=== PATIENT | male | born 2000 | race Caucasian/White ===

== ENCOUNTER 2022-08-04 13:57 | Emergency (ER) | payer MEDICAID ==
[~2022-08-04] VITALS: Ht 165.1 cm; Wt 51.8 kg
--- NOTE | 2022-08-04 16:19 | NUR ---
CHARGE NURSE JEROD CASTANEDA NOTIFIED OF GENERAL ASSESSMENT.
--- NOTE | 2022-08-04 16:37 | NUR ---
I agree with general assessment performed by Rosa Maria BHAT.
[2022-08-04 18:44] VITALS: BP 111/67
== END 2022-08-04 18:55 | disposition home or self-care (01) ==
LOC: ER 13:59
DX: K64.4 Residual hemorrhoidal skin tags (principal); F17.200 Nicotine dependence, unspecified, uncomplicated
CPT/HCPCS: 99281

== ENCOUNTER 2025-05-29 06:38 | Emergency (ER) | payer MEDICAID ==
[~2025-05-29] VITALS: Ht 165.1 cm; Wt 50.4 kg
--- NOTE | 2025-05-29 07:33 | RADIOLOGY REPORT ---
CHEST RADIOGRAPH Indication: LEFT LATERAL RIB PAIN Technique: Frontal and lateral view of the chest was obtained Comparison: None FINDINGS: Lines and Tubes: None Lungs: Clear Pleura: No effusion. No pneumothorax. Cardiomediastinal contours: Unremarkable Bones: Unremarkable IMPRESSION: No evidence of acute disease.
--- NOTE | 2025-05-29 08:29 | ELECTROCARDIOGRAPH REPORT ---
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
--- NOTE | 2025-05-29 08:38 | Physician Documentation ---
History of Present Illness General Chief Complaint: Rib pain Stated Complaint: SOB/LEFT SIDE PAIN Time Seen by MD: 08:33 Primary Medical Doctor: [facility] History of Present Illness Initial Comments The patient is a 24-year-old male with no significant past medical history who woke up this morning and smoked marijuana and tobacco. Shortly thereafter he developed left-sided chest pain, sharp and worse with movement and breathing. He has no cardiac history. Medication Reconciliation Allergies: Coded Allergies: No Known Allergies (Unverified , 08/04/22) Review of Systems ROS Constitutional: Denies chills, fatigue, fever, weight gain or weight loss. HEENT: Denies hearing loss, sinus pressure or visual changes. Respiratory: Denies cough, shortness of breath or wheezing. Cardiovascular: Denies chest pain, pain while walking (claudication), edema or palpitations. Gastrointestinal: Denies abdominal pain, blood in stool, constipation, diarrhea, heartburn, loss of appetite, nausea or vomiting. Genitourinary: Denies painful urination (dysuria), excessive amount of urine (polyuria) or urinary frequency. Metabolic/Endocrine: Denies cold intolerance, heat intolerance, excessive thirst (polydipsia) or excessive hunger (polyphagia). Neurological: Denies dizziness, extremity numbness, extremity weakness, headaches, seizures or tremors. Psychiatric: Denies anxiety or depression. Integumentary: Denies breast discharge, breast lump, hives, mole change(s), rash or skin lesion. Musculoskeletal: Left-sided chest wall pain. Hematologic: Denies easily bleeding, easily bruises, lymphedema or issues with blood clots. Immunologic: Denies food allergies or seasonal allergies. Physical Exam Physical Exam Vital Signs: Temperature: 98.1, Source: Temporal, Heart Rate: 63, Respiratory Rate: 15, BP: 123/79, Pulse Oximetry: 97, Weight: 50.400 Oxygen Flow Rate: 0 Physical Exam Physical Exam Vitals and nursing note reviewed. Constitutional: General: Patient is awake, alert, oriented x 4 in no acute distress and well appearing. Speech is clear and lucid. Appearance: Normal appearance. Patient is not ill-appearing, toxic-appearing or diaphoretic. HENT: Head: Normocephalic and atraumatic. Mouth/Throat: Mouth: Mucous membranes are moist. Pharynx: Oropharynx is clear. Eyes: General: No scleral icterus. Extraocular Movements: Extraocular movements intact. Pupils: Pupils are equal, round, and reactive to light. Neck: Supple, no Kernig or Brudzinski sign. Cardiovascular: Rate and Rhythm: Normal rate and regular rhythm. Heart sounds: No murmur heard. Pulmonary: Effort: No respiratory distress. Breath sounds: No wheezing, rhonchi or rales. Abdominal: General: There is no distension. Palpations: There is no fluid wave, hepatomegaly or mass. Tenderness: There is no abdominal tenderness. There is no guarding. Musculoskeletal: General: No swelling or deformity. Skin: Coloration: Skin is not jaundiced. Findings: No erythema or rash. Neurological: Mental Status: Patient is alert. Progress Results/Orders Results/Orders Orders - GIOVANNI REDDY MD Chest,Two Views (05/29/25 06:42) Completed Orders - GIOVANNI REDDY MD Stat Ekg (05/29/25 06:42) Chest,Two Views (05/29/25 06:42) Vital Signs 05/29/25 05/29/25 06:43 08:12 Temp 98.1 Pulse 73 63 Resp 18 15 B/P (MAP) 123/71 123/79 (94) Pulse Ox 97 97 O2 Flow Rate 0 Medical Decision Making Findings EKG medically necessary in the evaluation of chest pain and interpreted by me at the time of patient evaluation. Rhythm is sinus rhythm with a rate of 84. Impression: Unremarkable EKG. ECG reading does not show any acute signs of obvious ischemia. No evidence of A- V block. No short [place], delta waves, or wide QRS concerning for [id number]. No long QT events on my read. I do not see evidence of Brugada with ST elevations in V1 through V3. No epsilon wave noted. No low voltage suggestive of pericardial effusion. No right ventricular strain pattern. CHEST X-RAY FINDINGS: X-rays were interpreted by me. The lungs are clear. The cardiac and mediastinal contours are within normal limits. There is no evidence of pulmonary vascular congestion, pleural effusions or pneumothorax. The bony thorax appears grossly intact. IMPRESSION: Normal radiographic examination of the chest with no acute cardiopulmonary abnormality. I do not feel that this patient's chest pain is related to ischemia. It is chest wall pain after smoking. Departure Disposition: HOME / SELF CARE / HOMELESS Impression: Primary Impression: Chest wall pain Condition: Stable Additional Instructions: You have been evaluated for chest pain after smoking marijuana and tobacco. Please take ibuprofen, as discussed. Return for worsening symptoms or new/unusual symptoms. It is important to see your doctor or primary care provider. Emergency care may be incomplete without proper follow-up. Symptoms sometimes change or new symptoms might arise after you leave the emergency department. It is important that you call your doctor if you become worse in any way, or return to the emergency department. You are strongly urged to follow-up with your physician to assure complete and thorough care. Please call your doctor's office today, and informed them that you were seen in the emergency department, and that you need to be seen immediately for close follow-up. If you do not have a primary care doctor we encourage you to proactively seek a local physician for close follow-up. Consider local clinics, [facility], or local [facility]. Prior to discharge we spoke at length concerning symptoms that would merit reevaluation, but please return to the emergency department for any symptoms that are concerning to you, and we will be happy to continue your evaluation and treatment. Please note you can always return to the emergency department if you are having difficulty coordinating close follow-up. If medications were prescribed, you should fill them at your local pharmacy immediately and take only as prescribed. Bring your new medications to your doctors follow-up visit to discuss any changes that would be necessary. Please check [facility] for any results you did not receive in the Emergency Department: often we are unable to get all your tests back before you leave, and these tests need to be reviewed by your PCP and yourself. You can also call Medical Records if you are unable to access the internet to see [place]. Return to the emergency department immediately for worsening chest pain, difficulty breathing, sweating, or other concerning emergent symptoms. Referrals: NO PRIMARY CARE PROVIDER (PCP) Signature Scribe Signature: . Attestation: GIOVANNI CARDOSO MD May 29, 2025 08:38
[2025-05-29 08:52] VITALS: BP 108/77; PULSE 70; RESP 22; TEMP 98.1; O2SAT 95
== END 2025-05-29 08:54 | disposition home or self-care (01) ==
LOC: ER 06:38
DX: R07.89 Other chest pain (principal); F17.200 Nicotine dependence, unspecified, uncomplicated
CPT/HCPCS: 71046; 93005; 99283